=== PATIENT | female | born 1965 | race Caucasian/White ===

== ENCOUNTER → 2018-01-01 | Outpatient (CLI) | payer BC | LOC: MC.RAD 12:54 | DX: N60.02 Solitary cyst of left breast (principal) | CPT/HCPCS: G0279 ==

== ENCOUNTER 2018-06-07 15:40 | Emergency (ER) | payer BC ==
[~2018-06-07] VITALS: Ht 172.7 cm; Wt 88.2 kg
[2018-06-07 16:08] VITALS: TEMP 99.3
[2018-06-07] MEDS ORDERED: ULTRAM 50MG TAB50 MG PO (16:46)
[2018-06-07] MEDS ORDERED: OXAYDO5 MG PO (16:47)
[2018-06-07] MEDS ORDERED: PHENERGAN 25 TA25 MG PO (16:48)
[2018-06-07 19:25] VITALS: BP 131/74; PULSE 87
== END 2018-06-07 19:30 | disposition home or self-care (01) ==
LOC: COL.ER 15:40
DX: M25.562 Pain in left knee (principal); G89.18 Other acute postprocedural pain; R11.2 Nausea with vomiting, unspecified; F17.210 Nicotine dependence, cigarettes, uncomplicated
CPT/HCPCS: J2270; J2405; J2550

== ENCOUNTER → 2023-01-05 | Outpatient (CLI) | payer BC ==
[~2023-01-05] MED LIST: OXAYDO5 MG PO; PHENERGAN 25 TA25 MG PO; ULTRAM 50MG TAB50 MG PO
== END ==
LOC: COL.RAD 12:58
DX: K21.9 Gastro-esophageal reflux disease without esophagitis (principal); K44.9 Diaphragmatic hernia without obstruction or gangrene; K57.90 Diverticulosis of intestine, part unspecified, without perforation or abscess without bleeding
CPT/HCPCS: Q9967

== ENCOUNTER 2023-01-31 11:15 | Outpatient (RCR) | payer BC | END 2023-02-04 | disposition home or self-care (01) | LOC: WSST | DX: R49.0 Dysphonia (principal) ==

== ENCOUNTER → 2023-03-07 | Outpatient (RCR) | payer BC | END | disposition home or self-care (01) | LOC: WSST | DX: R49.0 Dysphonia (principal); R13.10 Dysphagia, unspecified ==